=== PATIENT | male | born 1970 ===

== ENCOUNTER 2016-12-10 16:52 | Emergency (ER) | payer OTHER ==
[~2016-12-10] VITALS: Ht 180.3 cm; Wt 81.8 kg
[2016-12-10 17:09] VITALS: BP 152/90; PULSE 99; RESP 16; O2SAT 100
--- NOTE | 2016-12-10 18:32 | ED.REPORT ---
HPI-Extremity Problem Upper Date of Service Dec 10, 2016 ED Provider: Max Camacho MD Patient is a 46 year old male who presents to the ED complaining of left hand pain onset 3 days ago. Associated symptoms include redness and swelling. Patient reports that he was working on a car and scratched his hand but denies injury to the hand. The patient states he is unsure if he got a sliver or something stuck in his hand; Does not have FB sensation. Tetanus is up to date. The patient denies IV drug use. Nursing Notes Stated Complaint: LEFT HAND SWOLLEN,PAIN Chief Complaint: Extremity Trauma Nursing Notes Reviewed: Yes Allergies: Coded Allergies: No Known Allergies (Unverified , 12/10/16) General Time Seen by MD: 18:31 Chief Complaint Hand Injury left Hx Obtained From: Patient Arrived By: Walk-in Onset Occurred: 3 days ago Symptom Duration: Since onset Location: : Hand left Quality: Painful Severity: Current: Moderate Recent Healthcare: No recent doctor visit Similar Sx Previous: No Past Medical History Past Surgical History flexor tendon repair 5th left finger Smoking History Unknown if Ever Smoker Social History Drug Use: Denies drug use Ambulatory Status Independent Review of Systems Review of Systems Note: +redness of the left hand Musculoskeletal: Reports: Extremity pain, Extremity swelling Complete sys rev & neg: except as marked. 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 No mary evidence of osteomyelitis. Plain film radiographs can be insensitive to osteomyelitis during the initial 15 days of the disease process. If there is clinical concern for osteomyelitis, then three-phase nuclear medicine bone scan is warranted. 2. Soft tissue swelling and soft tissue gas is consistent with infectious cellulitis Dictated by: Michelle Knox MD, PhD on 12/10/2016 at 18:56 Approved by: Michelle Knox MD, PhD on 12/10/2016 at 18:57 X-Ray Ordered: Hand left Interpretation / Wet Read by: Interpret - Radiologist Procedures Incision & Drainage Abscess Time: 20:33 Procedure Performed by: ED physician Consent / Setup / Site Prep: Consent from patient, Time-out performed, Hand hygiene observed, Stand sterile technique Location of Abscess: dorsum of left hand Skin Preparation Agent: Shurclens Local Anesthesia: Lidocaine 1% Incised Abscess with Scalpel: #11 Pus Drained: Medium Irrigation: Yes, Copious Post-Procedure / Complications: Packing placed, Culture obtained, Gram stain ordered, Dressing applied, No complications, Condition improved, Tolerated procedure well, Patient stable Re-Eval/Medical Decision Re-Evaluation/Progress #1: Time of Eval: 18:43 Re-Evaluation/Progress Note: Discussed plan for I&D of abscess. Patient understands and agrees to plan. All questions were addressed. Re-Evaluation/Progress #2: Time of Eval: 20:59 Re-Evaluation/Progress Note: Discussed plan for outpatient follow up and discharge. Patient understands and agrees to plan. All questions were addressed. Consultation : Referral / Consult Name: Dariel Fernandez MD Consulted With: Orthopedic Call Returned at: 19:57 Header Boss: Agrees with eval, Agrees with plan Note: Consult with Dr. Fernandez who recommends antibiotics and follow up Counseled Regarding: Diagnosis, Lab results, Need for follow-up, When/why to return to ED Discharge & Departure Impression: Primary Impression: Abscess Additional Impression: Cellulitis Site of cellulitis: extremity Site of cellulitis of extremity: upper extremity Laterality: left Qualified Code: L03.114 - Cellulitis of left upper limb Disposition: Home Discharge Condition All VS Reviewed: Yes Condition: Stable Patient Instructions: Abscess (ED), Cellulitis (ED) Additional Instructions: Today we opened an abscess on your L hand. because of some surrounding infection, (cellulitis) we also started oral antibiotics. keep the dressing on your hand, keep in clean and dry and return to ED for re-check tomorrow after 6pm. As for Dr Camacho. Elevate hand when able. return immediately if you have fevers or increasing redness up arm. Cephalexen 500mg 4 times a day and bactrim 2 times a day. Take all of these. Hydrocodone/apap 1-2 every 4 hours as needed for pain. Scribe Attestation Portions of this note were transcribed by Elaine Mike. I, Dr. Camacho personally performed the history, physical exam and medical decision-making; I reviewed and confirmed the accuracy of the information in the transcribed note. Signed by: Cely Lin, 12/10/16 Max Camacho MD Dec 10, 2016 18:32 Consuelo Mike Dec 10, 2016 18:39 Signed by: Cely Lin, 12/10/16 copies to: Dariel Fernandez MD, Donald L MD Dec 10, 2016 18:32 Consuelo Mike Dec 10, 2016 18:39
[2016-12-10] MEDS ORDERED: HYDROcodone-APAP 5-325 mg Tablet PO ONE (18:40)
[2016-12-10] MEDS ORDERED: Trimethoprim-Sulfa 160 mg-800 mg Tablet PO ONE (18:40)
--- NOTE | 2016-12-10 18:59 | DRSVH ---
PROCEDURE: X-RAY LEFT HAND, MINIMUM THREE VIEWS ([id number]) INDICATIONS: L hand infection TECHNIQUE: 3 views of the hand(s) acquired. COMPARISON: None. FINDINGS: Bones: Suture anchors noted in the fifth proximal and middle phalanges. No acute fractures or dislo cations. Slight deformity of the fifth metacarpal which may be related to remote trauma. Carpal bone s are normally aligned. No suspicious bony lesions. No mary bony destruction or periosteal reaction . Soft tissues: No suspicious soft tissue calcifications. Soft tissue swelling noted in the hand. A s mall air locule noted in the subcutaneous soft tissues of the lateral and dorsal hand. IMPRESSION: 1. No mary evidence of osteomyelitis. Plain film radiographs can be insensitive to osteomyelitis dur ing the initial 15 days of the disease process. If there is clinical concern for osteomyelitis, then three-phase nuclear medicine bone scan is warranted. 2. Soft tissue swelling and soft tissue gas is consistent with infectious cellulitis Dictated by: Michelle Knox MD, PhD on 12/10/2016 at 18:56 Approved by: Michelle Knox MD, PhD on 12/10/2016 at 18:57
[2016-12-10 19:52] VITALS: BP 127/78; PULSE 92; RESP 18; O2SAT 97
[2016-12-10] MEDS ORDERED: _HYDROcodone/APAP 5-325 mg Tablet PO PRN (20:55)
[2016-12-10] MEDS ORDERED: _Trimethoprim-Sulfa 160/800 mg Tablet PO SCH (20:55)
[2016-12-10 21:29] VITALS: BP 127/78; PULSE 87; RESP 18; O2SAT 99
[2016-12-10] MEDS ORDERED: _Cephalexin 500 mg Capsule PO SCH (21:30)
== END 2016-12-10 21:31 | disposition home or self-care (01) ==
LOC: SED 16:52
DX: L02.512 Cutaneous abscess of left hand (principal); L03.114 Cellulitis of left upper limb